=== PATIENT | female | born 1950 | race Caucasian/White ===

== ENCOUNTER 2024-02-23 08:07 | Day surgery (SDC) | payer MEDICARE ==
[~2024-02-23 08:07] MED LIST: ANORO ELLIPTA1 EACH INH; ATOR40TA PO; Aspir 8181 MG PO; BIOTIN5000 MC4 PO; CALCIUM 600-VI1 EAC7 PO; EUTHYROX88 MC1 PO; FISH OIL 1,2001 EAC7 PO; Lisinopril2.5 MG PO; MULTI-VITAMIN1 EAC2 PO; OMEP20ER PO; Prinivil10 MG PO; STIOLTO RESPIMAT4 G1 INH; Ultram50 MG PO; VENTOLIN INH; VITAMIN D350 MC3 PO; [UNRECOGNIZED DRUG - OTHER] INH
== END 2024-02-29 23:15 | disposition home or self-care (01) ==
LOC: MOI US 08:07
DX: C50.412 Malignant neoplasm of upper-outer quadrant of left female breast (principal); Z17.0 Estrogen receptor positive status [ER+]
CPT/HCPCS: 19285; 77065; A4648

== ENCOUNTER 2024-04-08 06:05 | Day surgery (SDC) | payer MEDICARE ==
[~2024-04-08] VITALS: Ht 160 cm; Wt 73.1 kg
[~2024-04-08 06:05] MED LIST changes: +ALBU90OI INH; +LEVSOD112 PO; +VITAMIN D310 MC4 PO; -VITAMIN D350 MC3 PO
[2024-04-08] MEDS ORDERED: Lactated Ringer's 1,000 ML IV ONE (06:46)
[2024-04-08] MEDS ORDERED: DIFLUPREDNATE5 ML OP (06:54)
[2024-04-08] MEDS ORDERED: MOXIOPS LEFTEYE (06:55)
[2024-04-08] MEDS ORDERED: propofoL 20 ML IV ONE (07:13)
[2024-04-08] MEDS ORDERED: FentaNYL Citrate 50 MCG/ML 2 ML Injection ONE ×3 (07:14→09:21)
[2024-04-08] MEDS ORDERED: CeFAZolin Sodium 2,000 MG VIAL ONE (07:19)
[2024-04-08] MEDS ORDERED: NS 50 ML IV ONE (07:19)
[2024-04-08] MEDS ORDERED: Bupivacaine 0.5% Inj 50 ML Vial (NON CHARGE) INJ ONE ×2 (07:47)
[2024-04-08] MEDS ORDERED: Ondansetron HCl 2 MG / ML 2ML Vial ONE (07:49)
[2024-04-08] MEDS ORDERED: ePHEDrine Sulfate 50 MG/ML 1ML Injection ONE (07:49)
[2024-04-08] MEDS ORDERED: Dexamethasone Sod Phos 10 MG/ML 1ML VIAL ONE (07:49)
[2024-04-08] MEDS ORDERED: HYDROcodone 5-APAP 325 TAB ONE (09:55)
--- NOTE | 2024-04-08 10:03 | NUR ---
04/08/24 [email or web address] AMBER RICHARDSON PT ADMITS PAIN IS A 3/10. PT EATING APPLE SAUCE. REQUESTED MORE WATER. DENIES NAUSEA.
--- NOTE | 2024-04-08 10:19 | NUR ---
04/08/24 [id number] David Damon History, Chart, Medications and Allergies reviewed before start of procedure. PT TAKEN TO OR VIA GURN.
== END 2024-04-08 10:34 | disposition home or self-care (01) ==
LOC: ORSCSDS 06:05
PROVIDERS: Surgery
PROC: 0HBU0ZZ Excision of Left Breast, Open Approach (ICD-10-PCS; principal; 2024-04-08 07:30)
PROC: 07B60ZX Excision of Left Axillary Lymphatic, Open Approach, Diagnostic (ICD-10-PCS; principal; 2024-04-08 07:30)
DX: C50.412 Malignant neoplasm of upper-outer quadrant of left female breast (principal); D36.0 Benign neoplasm of lymph nodes; I10 Essential (primary) hypertension; J44.9 Chronic obstructive pulmonary disease, unspecified; G47.33 Obstructive sleep apnea (adult) (pediatric); E11.9 Type 2 diabetes mellitus without complications; E03.9 Hypothyroidism, unspecified; K21.9 Gastro-esophageal reflux disease without esophagitis; Z87.891 Personal history of nicotine dependence; Z99.81 Dependence on supplemental oxygen; Z79.899 Other long term (current) drug therapy; Z79.82 Long term (current) use of aspirin
CPT/HCPCS: 82947; 88307; A9270; J0690; J1100; J2405; J2704; J3010

== ENCOUNTER 2024-06-01 08:35 | Emergency (ER) | payer MEDICARE ==
[~2024-06-01] VITALS: Ht 160 cm; Wt 72.6 kg
[~2024-06-01 08:35] MED LIST changes: +DIFLUPREDNATE5 ML OP; +MOXIOPS LEFTEYE
[2024-06-01] MEDS ORDERED: METF500 PO (10:02)
[2024-06-01] MEDS ORDERED: VITAMIN D350 MC3 (10:02)
[2024-06-01] MEDS ORDERED: PredniSONE 20 MG Tab PO ONE (10:45)
[2024-06-01] MEDS ORDERED: PRED20 PO (10:47)
== END 2024-06-01 11:07 | disposition home or self-care (01) ==
LOC: ER 08:35
DX: M75.22 Bicipital tendinitis, left shoulder (principal); S46.002A Unspecified injury of muscle(s) and tendon(s) of the rotator cuff of left shoulder, initial encounter; X58.XXXA Exposure to other specified factors, initial encounter; J44.9 Chronic obstructive pulmonary disease, unspecified; E11.9 Type 2 diabetes mellitus without complications; Z88.7 Allergy status to serum and vaccine; Z88.0 Allergy status to penicillin; Z79.82 Long term (current) use of aspirin; Z79.890 Hormone replacement therapy
CPT/HCPCS: 93971; 99283-25; J7512

== ENCOUNTER → 2024-11-10 | Outpatient (CLI) | payer MEDICARE ==
[~2024-11-10] MED LIST changes: +EPIPEN0.3 MG/0.3 IM; +MACRODANTIN100 M1 PO; +METF500 PO; +PRED20 PO; +VITAMIN D350 MC3
== END | disposition home or self-care (01) ==
LOC: LAB SHORT 07:35 → LAB 07:35
DX: N30.00 Acute cystitis without hematuria (principal)
CPT/HCPCS: 87077; 87086; 87186

== ENCOUNTER 2024-12-26 23:35 | Emergency (ER) | payer MEDICARE ==
[~2024-12-26] VITALS: Ht 160 cm; Wt 69.8 kg
[2024-12-27] MEDS ORDERED: Tranexamic Acid 1000 MG/10 ML 10ML Vial (SDV) ONE (00:20)
[2024-12-27 00:53] LABS: BASOPHILS ABSOLUTE AUTO 0.04 K/mm3 (0.00-0.23); BASOPHILS PERCENT AUTO 1 % (0-2); EOSINOPHILS ABSOLUTE AUTO 0.12 K/mm3 (0.00-0.68); EOSINOPHILS PERCENT AUTO 2 % (0-6); Hematocrit 36.5 % (33.0-51.0); Hemoglobin 12.0 g/dL (11.5-16.0); IMMATURE GRAN ABSOLUTE AUTO 0.03 K/mm3 (0.00-0.10); IMMATURE GRAN PERCENT AUTO 0 % (0-1); LYMPHOCYTES ABSOLUTE AUTO 1.63 K/mm3 (0.84-5.20); LYMPHOCYTES PERCENT AUTO 20 % (21-46); MONOCYTES ABSOLUTE AUTO 0.64 K/mm3 (0.16-1.47); MONOCYTES PERCENT AUTO 8 % (4-13); Mean Corpuscular HGB Conc 32.9 g/dL (31.5-36.5); Mean Corpuscular Volume 80 fL (80-100); NEUTROPHILS ABSOLUTE AUTO 5.55 K/mm3 (1.96-9.15); NEUTROPHILS PERCENT AUTO 69 % (41-73); NRBC ABSOLUTE 0.00 K/mm3 (0.00-0.02); NRBC Auto 0.0 /100 WBC (0.0-0.2); Platelet Count 113 K/mm3 (150-400); RDW Coefficient Variation 16.9 % (11.7-14.2); RDW Standard Deviation 49.1 fL (35.1-46.3)
[2024-12-27 01:21] LABS: Alanine Aminotransfer (ALT/SGP 45.0 U/L (12-78); Albumin, Blood 3.4 g/dL (3.4-5.0); Albumin/Globulin Ratio 0.9 (0.8-1.8); Anion Gap 12.0 mmol/L (3-11); Aspartate Aminotrans (AST/SGOT 54.0 U/L (12-37); Bilirubin, Total 1.7 mg/dL (0.1-1.0); Blood Urea Nitrogen 9.0 mg/dL (8-24); CO2, Blood 23.0 mmol/L (21-32); Calcium, Blood 9.3 mg/dL (8.5-10.1); Chloride, Blood 97.0 mmol/L (98-108); Creatinine, Blood 0.53 mg/dL (0.40-1.00); Globulin, Blood 3.9 g/dL (2.2-4.0); Glucose, Blood 156.0 mg/dL (70-99); Potassium, Blood 3.1 mmol/L (3.5-5.5); Sodium, Blood 129.0 mmol/L (136-145); Total Protein, Blood 7.3 g/dL (6.4-8.2)
[2024-12-27] MEDS ORDERED: Oxymetazoline 0.05% Nasal Relief Spray 15mL BTL SCH (09:00)
== END 2024-12-27 02:28 | disposition home or self-care (01) ==
LOC: ER 23:35
PROVIDERS: Emergency Medicine
DX: R04.0 Epistaxis (principal); E87.1 Hypo-osmolality and hyponatremia; E87.6 Hypokalemia; J44.9 Chronic obstructive pulmonary disease, unspecified; E11.9 Type 2 diabetes mellitus without complications; Z88.7 Allergy status to serum and vaccine; Z88.0 Allergy status to penicillin; Z88.8 Allergy status to other drugs, medicaments and biological substances; Z79.82 Long term (current) use of aspirin; Z79.84 Long term (current) use of oral hypoglycemic drugs; Z79.899 Other long term (current) drug therapy; Z79.890 Hormone replacement therapy
CPT/HCPCS: 30901; 80053; 85025; 99283; A9270